=== PATIENT | female | born 1950 | race Caucasian/White ===

== ENCOUNTER → 2017-08-13 | Outpatient (CLI) | payer BC | LOC: MC.RAD 08:17 | DX: Z12.31 Encounter for screening mammogram for malignant neoplasm of breast (principal) ==

== ENCOUNTER → 2020-01-16 | Outpatient (CLI) | payer MEDICARE, BC | LOC: MC.RAD 10:12 | DX: Z12.31 Encounter for screening mammogram for malignant neoplasm of breast (principal) ==

== ENCOUNTER → 2022-04-29 | Outpatient (CLI) | payer MEDICARE, BC | LOC: MC.RAD 07:55 | DX: Z12.31 Encounter for screening mammogram for malignant neoplasm of breast (principal); N63.10 Unspecified lump in the right breast, unspecified quadrant; N63.20 Unspecified lump in the left breast, unspecified quadrant ==

== ENCOUNTER → 2022-05-01 | Outpatient (CLI) | payer MEDICARE, BC | LOC: MC.RAD 10:28 | DX: N60.02 Solitary cyst of left breast (principal); N60.01 Solitary cyst of right breast ==